=== PATIENT | male | born 1985 | race Caucasian/White ===

== ENCOUNTER 2018-04-24 14:16 | Inpatient (IN) | payer SELFPAY ==
[~2018-04-24 14:16] MED LIST: PROPOFOL 1,000 MG/100 ML INFUS..BTL IV ONE
[2018-04-24] MEDS ORDERED: ACETAMINOPHEN 325 MG TABLET PO PRN (14:22)
[2018-04-24] MEDS ORDERED: NORMAL SALINE 1000 ML 1,000 ML IV PRN ×2 (14:22→14:40)
[2018-04-24] MEDS ORDERED: PHARMACY COMMUNICATION ORDER MC NR (14:30)
--- NOTE | 2018-04-24 15:22 | RADIOLOGY REPORT (SQ) ---
EXAM DESCRIPTION: CHEST SINGLE VIEW COMPLETED DATE/TIME: 04/24/2018 3:04 pm REASON FOR STUDY: ETT placement. Evaluate for aspiration COMPARISON: None. EXAM PARAMETERS: NUMBER OF VIEWS: One view. TECHNIQUE: Single frontal radiographic view of the chest acquired. RADIATION DOSE: NA LIMITATIONS: None. FINDINGS: LUNGS AND PLEURA: No acute opacities, masses or pneumothorax. No pleural effusion. MEDIASTINUM AND HILAR STRUCTURES: No masses. Contour normal. HEART AND VASCULAR STRUCTURES: Heart normal in size. Normal vasculature. BONES: No acute findings. HARDWARE: Endotracheal tube tip overlies the mid trachea approximately 8 cm above the level of the ca lita. Nasogastric catheter is present with side port below the GE junction. OTHER: No other significant finding. IMPRESSION: Endotracheal tube tip overlies the mid trachea approximately 8 cm above the level of the johnnie. Nasogastric catheter is present with side port below the GE junction. TECHNICAL DOCUMENTATION: JOB ID: [id number] 2010 [employer]- All Rights Reserved Reading location - IP/workstation name: [email or web address]
[2018-04-24 15:41] LABS: ABSOLUTE MONOCYTES (AUTO) 0.2 10^3/uL (0.1-1.4); ABSOLUTE NEUT (AUTO) 9.4 10^3/uL (1.7-8.2); BASOPHILS % (AUTO) 0.2 % (0-2); HEMATOCRIT 38.8 % (37.9-51.0); LYMPHOCYTES % (AUTO) 9.4 % (13-45); MEAN CORPUSCULAR HEMOGLOBIN 28.6 pg (27.0-33.4); MEAN CORPUSCULAR HGB CONC 33.5 g/dL (32.0-36.0); MEAN CORPUSCULAR VOLUME 85 fl (80-97); MONOCYTES % (AUTO) 1.5 % (3-13); PLATELET COUNT 191 10^3/uL (150-450); RED BLOOD COUNT 4.55 10^6/uL (4.35-5.55); RED CELL DISTRIBUTION WIDTH 13.9 % (11.5-14.0); SEGMENTED NEUTROPHILS % (AUTO) 88.9 % (42-78); TOTAL CELLS COUNTED % (AUTO) 100 %; WHITE BLOOD COUNT 10.6 10^3/uL (4.0-10.5)
[2018-04-24 15:53] LABS: INTERNATIONAL RATION (INR) 1.01; PROTHROMBIN TIME 13.8 SEC (11.4-15.4)
--- NOTE | 2018-04-24 15:54 | RADIOLOGY REPORT (SQ) ---
EXAM DESCRIPTION: KUB/ABDOMEN (SINGLE VIEW) COMPLETED DATE/TIME: 04/24/2018 3:04 pm REASON FOR STUDY: Check Placement of NG Tube COMPARISON: None. NUMBER OF VIEWS: One view. TECHNIQUE: Supine radiographic image of the abdomen acquired. LIMITATIONS: None. FINDINGS: BOWEL GAS PATTERN: Nonspecific, nonobstructed bowel gas pattern. CALCIFICATIONS: No suspicious calcifications. SOFT TISSUES: No gross mass or suggestion of organomegaly. HARDWARE: Apparent Overton bladder catheter. Notably, no enteric tube is visualized on this image. BONES: No acute fracture. No worrisome bone lesions. OTHER: No other significant finding. IMPRESSION: No enteric tube is demonstrated on the image provided. Apparent Overton bladder catheter demonstrates normal position. TECHNICAL DOCUMENTATION: JOB ID: [id number] [employer]- All Rights Reserved Reading location - IP/workstation name: [email or web address]
[2018-04-24 16:03] LABS: ALANINE AMINOTRANSFERASE 49 U/L (21-72); ALBUMIN 3.8 g/dL (3.5-5.0); ALKALINE PHOSPHATASE 74 U/L (38-126); ANION GAP 11 (5-19); ASPARTATE AMINO TRANSFERASE 40 U/L (17-59); BILIRUBIN,DIRECT 0.3 mg/dL (0.0-0.4); BILIRUBIN,TOTAL 0.5 mg/dL (0.2-1.3); BLOOD UREA NITROGEN 16 mg/dL (7-20); CALCIUM 9.2 mg/dL (8.4-10.2); CARBON DIOXIDE 30 mmol/L (22-30); CHLORIDE 101 mmol/L (98-107); GLUCOSE 104 mg/dL (75-110); POTASSIUM 4.6 mmol/L (3.6-5.0); SODIUM 141.7 mmol/L (137-145); TOTAL PROTEIN 7.1 g/dL (6.3-8.2)
[2018-04-24 16:04] LABS: ALCOHOL < 10 mg/dL (NONE DETECTED)
[2018-04-24 16:13] LABS: CREATINE KINASE MB 2.01 ng/mL (<4.55)
--- NOTE | 2018-04-24 16:24 | RADIOLOGY REPORT (SQ) ---
EXAM DESCRIPTION: CT HEAD WITHOUT COMPLETED DATE/TIME: 04/24/2018 4:11 pm REASON FOR STUDY: found down - prolonged downtime COMPARISON: None. TECHNIQUE: Axial images acquired through the brain without intravenous contrast. Images reviewed wi th bone, brain and subdural windows. Additional sagittal and coronal reconstructions were generated. Images stored on PACS. All CT scanners at this facility use dose modulation, iterative reconstruction, and/or weight based d osing when appropriate to reduce radiation dose to as low as reasonably achievable (ALARA). [facility]: Dose Right [facility]: CareDose [facility]: Dose Right [facility]: Teradose 4D [facility]: Smart QWiPS RADIATION DOSE: CT Rad equipment meets quality standard of care and radiation dose reduction techniq ues were employed. CTDIvol: 53.2 mGy. DLP: 1044 mGy-cm. mGy. LIMITATIONS: None. FINDINGS: VENTRICLES: Normal size and contour. CEREBRUM: No masses. No hemorrhage. No midline shift. No evidence for acute infarction. Normal gra y/white matter differentiation. No areas of low density in the white matter. CEREBELLUM: No masses. No hemorrhage. No alteration of density. No evidence for acute infarction. EXTRAAXIAL SPACES: No fluid collections. No masses. ORBITS AND GLOBE: No intra- or extraconal masses. Normal contour of globe without masses. CALVARIUM: No fracture. PARANASAL SINUSES: No fluid or mucosal thickening. SOFT TISSUES: No mass or hematoma. OTHER: Partially imaged enteric and endotracheal tubes. IMPRESSION: NORMAL BRAIN CT WITHOUT CONTRAST. EVIDENCE OF ACUTE STROKE: NO. COMMENT: Quality ID # [id number]: Final reports with documentation of one or more dose reduction techniques (e.g., Automated exposure control, adjustment of the mA and/or kV according to patient size, use of iterative reconstruction technique) TECHNICAL DOCUMENTATION: JOB ID: [id number] [employer]- All Rights Reserved Reading location - IP/workstation name: [email or web address]
[2018-04-24] MEDS ORDERED: ACETAMINOPHEN 325 MG TABLET NG PRN (16:30)
--- NOTE | 2018-04-24 16:36 | RADIOLOGY REPORT (SQ) ---
EXAM DESCRIPTION: CT SOFT TISSUE NECK WITH COMPLETED DATE/TIME: 04/24/2018 4:11 pm REASON FOR STUDY: posterior pharynx trauma COMPARISON: None. TECHNIQUE: Post IV contrasted scanning from skull base through lung apices with review of bone, soft tissue and lung windows. Reconstructed coronal and sagittal MPR images reviewed. All images stored on PACS. All CT scanners at this facility use dose modulation, iterative reconstruction, and/or weight based d osing when appropriate to reduce radiation dose to as low as reasonably achievable (ALARA). [facility]: Dose Right [facility]: CareDose [facility]: Dose Right [facility]: Teradose 4D [facility]: CodeNgo CONTRAST TYPE AND DOSE: contrast/concentration: Isovue 370.00 mg/ml; Total Contrast Delivered: 75.0 ml; Total Saline Delivered: 55.0 ml RENAL FUNCTION: None required. The patient is less than 50 years old. RADIATION DOSE: CT Rad equipment meets quality standard of care and radiation dose reduction techniq ues were employed. CTDIvol: 15.6 mGy. DLP: 491 mGy-cm. . LIMITATIONS: None. FINDINGS: SKULL BASE: Intact. MAJOR SALIVARY GLANDS: No solid or cystic masses. No inflammatory changes. LYMPHADENOPATHY: No adenopathy. MUCOSAL MASSES OR ASYMMETRY: No mucosal masses or asymmetry. A small amount of foamy secretions are seen within the oropharynx in this intubated patient. LARYNX/CORDS: Poorly characterized due to endotracheal tube. VASCULAR STRUCTURES: The major vessels are patent. LUNG APICES: Clear. BONES: Intact. THYROID: Normal size. No masses. PARANASAL SINUSES: Clear. OTHER: An endotracheal tube terminates at the level of the clavicular head. An enteric tube is seen along the esophagus, extending caudally out of the field of view. IMPRESSION: 1. NO SIGNIFICANT FINDING IN THE SOFT TISSUES OF THE NECK. 2. ENDOTRACHEAL TUBE DEMONSTRATING APPROPRIATE POSITIONING. PARTIALLY IMAGED ENTERIC TUBE. TECHNICAL DOCUMENTATION: JOB ID: [id number] Quality ID # [id number]: Final reports with documentation of one or more dose reduction techniques (e.g., Au tomated exposure control, adjustment of the mA and/or kV according to patient size, use of iterative reconstruction technique) 2010 [employer]- All Rights Reserved Reading location - IP/workstation name: [email or web address]
--- NOTE | 2018-04-24 16:57 | PDOC H&P ---
History of Present Illness Admission Date/PCP: 04/24/18 14:16 Patient complains of: OBTUNDED. FOUND DOWN. History of Present Illness: MANDA NOLASCO III is a 32 year old male who [place] [facility] [place] The patient was found down by family, unknown downtime. Uncle reports he was unable to wake him up for work this morning. According to EMS, patient was agitated and combative with copious oral secretions. Versed was given in the field due to combativeness, AMS, and possible compromised airway. Following Versed administration, it was identified that the patient had a foreign body in his airway and there was some degree of difficulty with ventilation. The patient was transferred to [facility] for for immediate stabilization. He arrived to [facility] ED obtunded with copious bloody secretions as well as obvious foreign body in posterior oropharynx. Foreign body was identified as dentures. ENT was able to remove dentures after several attempts using fiberoptic endoscope and Cmac. The patient was intubated for airway protection due to poor neurological exam and upper airway trauma. The patient's sister was contacted and she confirmed that the patient had a history of IV heroin use. He was recently incarcerated on drug related charges and released approximately 3 months ago. He was identified as a civilian and transferred to [facility] ICU. No PMH Upon arrival to [facility] ICU, the patient is sedated on propofol. Able to move upper and lower extremities with purpose. Does not respond to commands, does not answer yes/no questions. PERRLA. His VS are T 37.0 BP 130/62 HR 63 RR 12 SPO2 100% on ventilator. NSR on cardiac telemetry. Lungs are clear to auscultation. S1S2, no murmur/rubs/gallops. Unable to visualize inside of oropharynx due to ETT. Lengthy discussion with sister, Katlyn (Quinten RN at [facility]). She reports that the patient has an extensive history of narcotic abuse that started when he was 16 years old. 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 The sister states the patient has been living with their mother but she is concerned that the patient has been using heroin since he has been out of [facility]. Of note, the patient did not receive Narcan during his time at [facility] emergency department. Admit to hospitalist service with pulmonary consult for vent management. Past Medical History Medical History: None Past Surgical History Past Surgical History: Reports: Orthopedic Surgery - titanium replaced eye socket, Tonsillectomy - adenoids Social History Information Source: Relative - SISTER Lizett CONKLIN Lives with: Family, Parents Smoking Status: Smoker,Current Status Unk Hx Recreational Drug Use: Yes Drugs: Heroin Hx Prescription Drug Abuse: Yes - PERCOCET - Advance Directive Resuscitation Status: Full Code Surrogate healthcare decision maker:: MOTHER Family History Family History: Reviewed & Not Pertinent, Other Parental Family History Reviewed: No - UNABLE TO ASSESS Children Family History Reviewed: NA Sibling(s) Family History Reviewed.: NA Medication/Allergy Home Medications: Ibuprofen 800 mg PO Q4H PRN 11/15/12 Oxycodone HCl/Acetaminophen [Percocet 5-325 mg Tablet] 1 - 2 tab PO ASDIR PRN # 25 tablet 04/19/14 Allergies/Adverse Reactions: hydrocodone [Hydrocodone] Adverse Reaction (Mild, Verified 04/19/14 19:17) bee stings Allergy (Severe, Uncoded 04/19/14 19:17) Anaphylaxis Review of Systems ROS unobtainable: Due to endotracheal tube Physical Exam General appearance: PRESENT: thin Head exam: PRESENT: atraumatic Eye exam: PRESENT: conjunctiva pink, PERRLA Mouth exam: PRESENT: moist Neck exam: PRESENT: full ROM Respiratory exam: PRESENT: clear to auscultation uma, symmetrical, unlabored Cardiovascular exam: PRESENT: RRR, +S1, +S2 Pulses: PRESENT: normal radial pulses, normal dorsalis pedis pul GI/Abdominal exam: PRESENT: normal bowel sounds, soft. ABSENT: distended Rectal exam: PRESENT: deferred Extremities exam: PRESENT: full ROM. ABSENT: +1 edema Musculoskeletal exam: PRESENT: full ROM, normal inspection Neurological exam: PRESENT: other - SEDATED ON PROPOFOL. PURPOSEFUL MOVEMENT OF UPPER AND LOWER EXTREMITIES. ABSENT: oriented to person, oriented to place, oriented to time, oriented to situation Skin exam: PRESENT: dry, intact, normal color, warm Results Impressions: Chest X-Ray 04/24/18 14:26 IMPRESSION: Endotracheal tube tip overlies the mid trachea approximately 8 cm above the level of the johnnie. Nasogastric catheter is present with side port below the GE junction. Status: Imported from PACS Assessment & Plan - Diagnosis (1) Acute respiratory failure with hypoxia Is this a current diagnosis for this admission?: Yes Plan: Secondary to illicit drug overdose and upper airway swelling UTOX (+) positive for opiates, family reports history of heroin use Obtunded upon arrival to [facility], intubated for airway protection Of note, patient's dentures were dislodged (per EMS) and multiple attempts were made (family, EMS, ED MD) to remove them from the oropharynx Significant amount of upper airway swelling secondary to manipulation in an attempt to remove dentures [facility] ENT was successful at removal of dentures Scheduled IV decadron for upper airway swelling CT Soft Tissue neck to evaluate soft tissue trauma and possible vessel damage Continue mechanical ventilation tonight Plan to test cuff pressure in AM and evaluate for airway swelling and possible extubation (2) Overdose Qualifiers: Encounter type: initial encounter Is this a current diagnosis for this admission?: Yes Plan: Patient found down by family, unknown downtime. Arrived to [facility] obtunded UTOX (+) positive for opiates Sister reports history of IV heroin use No Narcan administered at [facility] Patient intubated for airway protection No plan to administer Narcan now that patient is intubated (3) Illicit drug use Is this a current diagnosis for this admission?: Yes Plan: Sister reports the patient has a history of IV heroin use She states that the patient has been abusing narcotics since age 16 y.o. Recent incarceration for 1 yr on drug related charges. [facility] approx[facility] 3 months ago The patient did not receive Narcan while at [facility], no plan to administer now Will offer supportive care if patient begins to withdraw (4) Contact with and (suspected) exposure to tuberculosis Is this a current diagnosis for this admission?: Yes Plan: Recent incarceration for 1 year Released 3 months ago R/o TB - PPD placed today (04/24) - Time Time Spent: 50 to 70 Minutes Critical Time spent with patient: 15-24 minutes Medications reviewed and adjusted accordingly: Yes Anticipated discharge: Home - Inpatient Certification Based on my medical assessment, after consideration of the patient's comorbidities, presenting symptoms, or acuity I expect that the services needed warrant INPATIENT care.: Yes I certify that my determination is in accordance with my understanding of Medicare's requirements for reasonable and necessary INPATIENT services [42 CFR 412.3e].: Yes Medical Necessity: Risk of Complication if Not Cared For in Hospital - Plan Summary Plan Summary: ADMIT TO ICU. MECHANICAL VENTILATION OVERNIGHT. IV STEROIDS. CONTINUOUS SEDATION. PLAN FOR CUFF PRESSURE/CUFF LEAK TEST IN AM.
[2018-04-24 16:59] LABS: ARTERIAL BLOOD BASE EXCESS 2.1 mmol/L; ARTERIAL BLOOD H2CO3 1.93 mmol/L (1.05-1.35); ARTERIAL BLOOD HCO3 30.3 mmol/L (20-26); ARTERIAL BLOOD O2 SATURATION 77.6 % (94-98); ARTERIAL BLOOD PCO2 64.1 mmHg (35-45); ARTERIAL BLOOD PH 7.29 (7.35-7.45); ARTERIAL BLOOD PO2 47.5 mmHg (80-100); ARTERIAL BLOOD TOTAL CO2 32.3 mmol/L (23-27)
[2018-04-24 17:00] LABS: ARTERIAL BLOOD FIO2 28%
[2018-04-24] MEDS ORDERED: TUBERCULIN,PURIF.PROT.DERIV. 5 TU/0.1 ML TEST 1 ML VIAL ID ONE (17:00)
[2018-04-24 17:03] LABS: APPEARANCE,URINE CLEAR; BILIRUBIN,URINE NEGATIVE (NEGATIVE); COLOR,URINE YELLOW; GLUCOSE, URINE NEGATIVE (NEGATIVE); KETONES,URINE 20 mg/dL (NEGATIVE); LEUKOCYTE ESTERASE,URINE NEGATIVE (NEGATIVE); NITRITE,URINE NEGATIVE (NEGATIVE); PROTEIN,URINE NEGATIVE (NEGATIVE); UROBILINOGEN,URINE NEGATIVE mg/dL (<2.0)
[2018-04-24 17:04] LABS: URINE SPECIFIC GRAVITY > 1.060
[2018-04-24 17:18] LABS: URINE AMPHETAMINES SCREEN NEGATIVE; URINE BARBITURATES SCREEN NEGATIVE; URINE COCAINE SCREEN NEGATIVE; URINE MARIJUANA (THC) SCREEN NEGATIVE; URINE METHADONE SCREEN NEGATIVE; URINE PHENCYCLIDINE SCREEN NEGATIVE
[2018-04-24 17:26] LABS: URINE BENZODIAZEPINES SCREEN UNCONFIRMED POSITIVE
[2018-04-24 20:41] LABS: ARTERIAL BLOOD BASE EXCESS 0.5 mmol/L; ARTERIAL BLOOD H2CO3 1.54 mmol/L (1.05-1.35); ARTERIAL BLOOD O2 SATURATION 96.9 % (94-98); ARTERIAL BLOOD PCO2 51.1 mmHg (35-45); ARTERIAL BLOOD PH 7.34 (7.35-7.45); ARTERIAL BLOOD PO2 96.9 mmHg (80-100); ARTERIAL BLOOD TOTAL CO2 28.6 mmol/L (23-27)
[2018-04-24 20:42] LABS: ARTERIAL BLOOD FIO2 28%
--- NOTE | 2018-04-24 21:47 | EKG REPORT ---
SEVERITY:- NORMAL ECG - SINUS RHYTHM : Confirmed by: Ester Abad MD 24-Apr-2018 21:46:18
[2018-04-24] MEDS ORDERED: DEXAMETHASONE SOD PHOS INJ 10 MG/1 ML VIAL IV SCH (22:00)
[2018-04-24] MEDS: PANTOPRAZOLE SODIUM 40 MG VIAL IV SCH (22:07)
[2018-04-24] MEDS: DEXAMETHASONE SOD PHOS INJ 10 MG/1 ML VIAL IV SCH (22:07)
[2018-04-24] MEDS: PROPOFOL 1,000 MG/100 ML INFUS..BTL IV PRN ×2 (22:07→23:14)
[2018-04-24] MEDS: FENTANYL CITRATE INJ/PF 100 MCG/2 ML AMPUL IV PRN (23:13)
[2018-04-24] MEDS: LORAZEPAM INJ 2 MG/1 ML VIAL IV PRN (23:13)
[2018-04-25 03:14] LABS: HEMATOCRIT 38.2 % (37.9-51.0); HEMOGLOBIN 13.1 g/dL (13.5-17.0); MEAN CORPUSCULAR HEMOGLOBIN 29.2 pg (27.0-33.4); MEAN CORPUSCULAR HGB CONC 34.3 g/dL (32.0-36.0); MEAN CORPUSCULAR VOLUME 85 fl (80-97); PLATELET COUNT 200 10^3/uL (150-450); RED BLOOD COUNT 4.49 10^6/uL (4.35-5.55); RED CELL DISTRIBUTION WIDTH 13.9 % (11.5-14.0); WHITE BLOOD COUNT 10.5 10^3/uL (4.0-10.5)
[2018-04-25 03:24] LABS: ANION GAP 9 (5-19); BLOOD UREA NITROGEN 17 mg/dL (7-20); CALCIUM 9.1 mg/dL (8.4-10.2); CARBON DIOXIDE 29 mmol/L (22-30); CHLORIDE 104 mmol/L (98-107); GLUCOSE 125 mg/dL (75-110); PHOSPHORUS 4.6 mg/dL (2.5-4.5); POTASSIUM 4.8 mmol/L (3.6-5.0); SODIUM 142.1 mmol/L (137-145)
[2018-04-25] MEDS: LORAZEPAM INJ 2 MG/1 ML VIAL IV PRN ×2 (03:41→22:15)
[2018-04-25] MEDS: FENTANYL CITRATE INJ/PF 100 MCG/2 ML AMPUL IV PRN (03:41)
[2018-04-25] MEDS: PROPOFOL 1,000 MG/100 ML INFUS..BTL IV PRN ×2 (03:41→05:53)
[2018-04-25] MEDS: DEXAMETHASONE SOD PHOS INJ 10 MG/1 ML VIAL IV SCH ×3 (05:52→22:13)
[2018-04-25 06:21] LABS: ARTERIAL BLOOD BASE EXCESS 1.5 mmol/L; ARTERIAL BLOOD H2CO3 1.36 mmol/L (1.05-1.35); ARTERIAL BLOOD HCO3 26.8 mmol/L (20-26); ARTERIAL BLOOD O2 SATURATION 95.4 % (94-98); ARTERIAL BLOOD PCO2 45.1 mmHg (35-45); ARTERIAL BLOOD PH 7.39 (7.35-7.45); ARTERIAL BLOOD PO2 77.8 mmHg (80-100); ARTERIAL BLOOD TOTAL CO2 28.2 mmol/L (23-27)
[2018-04-25 06:22] LABS: ARTERIAL BLOOD FIO2 28%
[2018-04-25 09:26] LABS: APPEARANCE,URINE SLIGHTLY-CLOUDY; BILIRUBIN,URINE NEGATIVE (NEGATIVE); COLOR,URINE YELLOW; GLUCOSE, URINE NEGATIVE (NEGATIVE); KETONES,URINE NEGATIVE (NEGATIVE); LEUKOCYTE ESTERASE,URINE NEGATIVE (NEGATIVE); NITRITE,URINE NEGATIVE (NEGATIVE); PROTEIN,URINE NEGATIVE (NEGATIVE); URINE SPECIFIC GRAVITY 1.025; UROBILINOGEN,URINE NEGATIVE mg/dL (<2.0)
[2018-04-25] MEDS: PANTOPRAZOLE SODIUM 40 MG VIAL IV SCH ×2 (09:55→22:12)
[2018-04-25] MEDS: ENOXAPARIN SODIUM INJ 30 MG/0.3 ML DISP.SYRIN SUBCUT SCH (11:31)
--- NOTE | 2018-04-25 18:02 | PDOC PROGRESS REPORT ---
Subjective Progress Note for:: 04/25/18 Subjective:: MANDA NOLASCO III is a 32 year old male who transferred from [facility]). He was found down at home by his uncle. Family reports a history of IV heroin use. Foreign body (dentures) was discovered in his oropharynx by EMS. Multiple attempts at removal. Intubated for airway protection. [facility] ENT was able to remove foreign body. Patient is a civilian - direct admit to [facility] ICU. The patient is seen this morning on rounds. He is resting comfortably in bed on mechanical ventilation. Settings SIMV VC R16 [id number] Fio2 28% PEEP 5. Respiratory therapy at the bedside to check cuff pressure (to evaluate for upper airway edema), which was 22cm H20, within the normal range of 20-30cm H20. Ventilatory settings changed to P/S in preparation for extubation. Successful extubation today at 0838. Extubated to face tent. Patient exhibited a strong cough (on command) immediately following extubation. Will continue to monitor for signs of upper airway edema. Reason For Visit: OVERDOSE. AIRWAY OBSTRUCTION Physical Exam Vital Signs: Temp Pulse Resp BP Pulse Ox 98.2 F 66 17 124/76 100 04/25/18 00:00 04/24/18 21:21 04/25/18 06:09 04/25/18 06:09 04/25/18 06:09 Intake & Output 04/24/18 04/25/18 04/26/18 06:59 06:59 06:59 Intake Total 0 Output Total 1120 Balance -1120 Weight 88.4 kg General appearance: PRESENT: well-developed, well-nourished Head exam: PRESENT: atraumatic Eye exam: PRESENT: conjunctiva pink Teeth exam: PRESENT: poor dentation Neck exam: PRESENT: full ROM Respiratory exam: PRESENT: clear to auscultation uma, symmetrical, unlabored Cardiovascular exam: PRESENT: +S1, +S2 Pulses: PRESENT: normal radial pulses, normal dorsalis pedis pul GI/Abdominal exam: PRESENT: normal bowel sounds, soft. ABSENT: tenderness Rectal exam: PRESENT: deferred Extremities exam: PRESENT: full ROM Musculoskeletal exam: PRESENT: ambulatory, full ROM Neurological exam: PRESENT: alert, awake, oriented to person, oriented to place , oriented to time, oriented to situation Psychiatric exam: PRESENT: appropriate affect Skin exam: PRESENT: intact, normal color Results Laboratory Results: 04/25/18 02:50 04/25/18 02:50 04/24/18 04/24/18 04/24/18 15:19 15:19 15:19 WBC 10.6 H RBC 4.55 Hgb 13.0 L Hct 38.8 MCV 85 MCH 28.6 MCHC 33.5 RDW 13.9 Plt Count 191 Seg Neutrophils % 88.9 H Lymphocytes % 9.4 L Monocytes % 1.5 L Eosinophils % 0.0 Basophils % 0.2 Absolute Neutrophils 9.4 H Absolute Lymphocytes 1.0 Absolute Monocytes 0.2 Absolute Eosinophils 0.0 Absolute Basophils 0.0 Carbonic Acid HCO3/H2CO3 Ratio ABG pH ABG pCO2 ABG pO2 ABG HCO3 ABG O2 Saturation ABG Base Excess FiO2 Sodium 141.7 Potassium 4.6 Chloride 101 Carbon Dioxide 30 Anion Gap 11 BUN 16 Creatinine 0.77 Est GFR ( Amer) > 60 Est GFR (Non-Af Amer) > 60 Glucose 104 Calcium 9.2 Phosphorus Magnesium Total Bilirubin 0.5 AST 40 ALT 49 Alkaline Phosphatase 74 Total Protein 7.1 Albumin 3.8 TSH 0.58 Urine Color Urine Appearance Urine pH Ur Specific [place] Urine Protein Urine Glucose (UA) Urine Ketones Urine Blood Urine Nitrite Ur Leukocyte Esterase Urine WBC (Auto) Urine RBC (Auto) 04/24/18 04/24/18 04/24/18 16:35 16:45 19:30 WBC RBC Hgb Hct MCV MCH MCHC RDW Plt Count Seg Neutrophils % Lymphocytes % Monocytes % Eosinophils % Basophils % Absolute Neutrophils Absolute Lymphocytes Absolute Monocytes Absolute Eosinophils Absolute Basophils Carbonic Acid 1.93 H Cancelled HCO3/H2CO3 Ratio 15:1 Cancelled ABG pH 7.29 L Cancelled ABG pCO2 64.1 H Cancelled ABG pO2 47.5 L Cancelled ABG HCO3 30.3 H Cancelled ABG O2 Saturation 77.6 L Cancelled ABG Base Excess 2.1 Cancelled FiO2 28% Cancelled Sodium Potassium Chloride Carbon Dioxide Anion Gap BUN Creatinine Est GFR ( Amer) Est GFR (Non-Af Amer) Glucose Calcium Phosphorus Magnesium Total Bilirubin AST ALT Alkaline Phosphatase Total Protein Albumin TSH Urine Color YELLOW Urine Appearance CLEAR Urine pH 7.0 Ur Specific [place] > 1.060 Urine Protein NEGATIVE Urine Glucose (UA) NEGATIVE Urine Ketones 20 H Urine Blood NEGATIVE Urine Nitrite NEGATIVE Ur Leukocyte Esterase NEGATIVE Urine WBC (Auto) 1 Urine RBC (Auto) 2 04/24/18 04/25/18 04/25/18 20:30 02:50 02:50 WBC 10.5 RBC 4.49 Hgb 13.1 L Hct 38.2 MCV 85 MCH 29.2 MCHC 34.3 RDW 13.9 Plt Count 200 Seg Neutrophils % Lymphocytes % Monocytes % Eosinophils % Basophils % Absolute Neutrophils Absolute Lymphocytes Absolute Monocytes Absolute Eosinophils Absolute Basophils Carbonic Acid 1.54 H HCO3/H2CO3 Ratio 17:1 ABG pH 7.34 L ABG pCO2 51.1 H ABG pO2 96.9 ABG HCO3 27.0 H ABG O2 Saturation 96.9 ABG Base Excess 0.5 FiO2 28% Sodium 142.1 Potassium 4.8 Chloride 104 Carbon Dioxide 29 Anion Gap 9 BUN 17 Creatinine 0.66 Est GFR ( Amer) > 60 Est GFR (Non-Af Amer) > 60 Glucose 125 H Calcium 9.1 Phosphorus 4.6 H Magnesium 2.2 Total Bilirubin AST ALT Alkaline Phosphatase Total Protein Albumin TSH Urine Color Urine Appearance Urine pH Ur Specific [place] Urine Protein Urine Glucose (UA) Urine Ketones Urine Blood Urine Nitrite Ur Leukocyte Esterase Urine WBC (Auto) Urine RBC (Auto) 04/25/18 06:00 WBC RBC Hgb Hct MCV MCH MCHC RDW Plt Count Seg Neutrophils % Lymphocytes % Monocytes % Eosinophils % Basophils % Absolute Neutrophils Absolute Lymphocytes Absolute Monocytes Absolute Eosinophils Absolute Basophils Carbonic Acid 1.36 H HCO3/H2CO3 Ratio 19:1 ABG pH 7.39 ABG pCO2 45.1 H ABG pO2 77.8 L ABG HCO3 26.8 H ABG O2 Saturation 95.4 ABG Base Excess 1.5 FiO2 28% Sodium Potassium Chloride Carbon Dioxide Anion Gap BUN Creatinine Est GFR ( Amer) Est GFR (Non-Af Amer) Glucose Calcium Phosphorus Magnesium Total Bilirubin AST ALT Alkaline Phosphatase Total Protein Albumin TSH Urine Color Urine Appearance Urine pH Ur Specific [place] Urine Protein Urine Glucose (UA) Urine Ketones Urine Blood Urine Nitrite Ur Leukocyte Esterase Urine WBC (Auto) Urine RBC (Auto) 04/24/18 04/24/18 04/24/18 15:19 15:19 20:45 CK-MB (CK-2) 2.01 Troponin I < 0.012 < 0.012 NT-Pro-B Natriuret Pep 190 H 04/25/18 02:50 CK-MB (CK-2) Troponin I < 0.012 NT-Pro-B Natriuret Pep Impressions: Head CT 04/24/18 00:00 IMPRESSION: NORMAL BRAIN CT WITHOUT CONTRAST. EVIDENCE OF ACUTE STROKE: NO. Soft Tissue Neck CT 04/24/18 00:00 IMPRESSION: 1. NO SIGNIFICANT FINDING IN THE SOFT TISSUES OF THE NECK. 2. ENDOTRACHEAL TUBE DEMONSTRATING APPROPRIATE POSITIONING. PARTIALLY IMAGED ENTERIC TUBE. KUB X-Ray 04/24/18 14:23 IMPRESSION: No enteric tube is demonstrated on the image provided. Apparent Overton bladder catheter demonstrates normal position. Chest X-Ray 04/24/18 14:26 IMPRESSION: Endotracheal tube tip overlies the mid trachea approximately 8 cm above the level of the johnnie. Nasogastric catheter is present with side port below the GE junction. Status: Imported from PACS Assessment & Plan - Diagnosis (1) Acute respiratory failure with hypoxia Is this a current diagnosis for this admission?: Yes Plan: Resolved. Secondary to illicit drug overdose and upper airway swelling UTOX (+) positive for opiates, family reports history of heroin use Obtunded upon arrival to [facility] 04/24/2018, intubated for airway protection Patient's dentures were dislodged (per EMS) and multiple attempts were made ( family, EMS, ED MD) to remove them from the oropharynx. [facility] ENT was successful at removal. CT Soft Tissue neck negative Scheduled IV decadron for upper airway swelling Successful extubation 04/25/2018, monitor for upper airway swelling overnight Barring any complications, patient will likely be discharged home in AM (2) Overdose Qualifiers: Encounter type: initial encounter Is this a current diagnosis for this admission?: Yes Plan: UTOX (+) positive for opiates Sister reports history of IV heroin use Initially intubated for airway protection given poor neuro status Now awake and extubated Will offer supportive care if patient begins to experience withdrawal symptoms (3) Illicit drug use Is this a current diagnosis for this admission?: Yes Plan: Sister reports the patient has a history of IV heroin use She states that the patient has been abusing narcotics since age 16 y.o. Recent incarceration for 1 yr on drug related charges. Released from [facility] approx. 3 months ago Will offer supportive care if patient begins to withdraw (4) Contact with and (suspected) exposure to tuberculosis Is this a current diagnosis for this admission?: Yes Plan: Recent incarceration for 1 year Released 3 months ago R/o TB - PPD placed today (04/24) - Time Time Spent with patient: 15-24 minutes Medications reviewed and adjusted accordingly: Yes Anticipated discharge: Home Within: within 24 hours - Inpatient Certification Based on my medical assessment, after consideration of the patient's comorbidities, presenting symptoms, or acuity I expect that the services needed warrant INPATIENT care.: Yes I certify that my determination is in accordance with my understanding of Medicare's requirements for reasonable and necessary INPATIENT services [42 CFR 412.3e].: Yes Medical Necessity: Risk of Complication if Not Cared For in Hospital - Plan Summary Plan Summary: Monitor for upper airway swelling following denture dislodging and airway occlusion. Continue IV steroids. Monitor for withdrawal symptoms. Likely discharge home in AM.
[2018-04-26 04:35] LABS: HEMATOCRIT 36.4 % (37.9-51.0); HEMOGLOBIN 12.2 g/dL (13.5-17.0); MEAN CORPUSCULAR HEMOGLOBIN 28.2 pg (27.0-33.4); MEAN CORPUSCULAR HGB CONC 33.4 g/dL (32.0-36.0); MEAN CORPUSCULAR VOLUME 85 fl (80-97); PLATELET COUNT 184 10^3/uL (150-450); RED BLOOD COUNT 4.31 10^6/uL (4.35-5.55); RED CELL DISTRIBUTION WIDTH 13.5 % (11.5-14.0); WHITE BLOOD COUNT 12.8 10^3/uL (4.0-10.5)
[2018-04-26 05:07] LABS: ANION GAP 8 (5-19); BLOOD UREA NITROGEN 13 mg/dL (7-20); CALCIUM 9.3 mg/dL (8.4-10.2); CARBON DIOXIDE 30 mmol/L (22-30); CHLORIDE 108 mmol/L (98-107); GLUCOSE 114 mg/dL (75-110); PHOSPHORUS 2.8 mg/dL (2.5-4.5); POTASSIUM 4.2 mmol/L (3.6-5.0); SODIUM 145.6 mmol/L (137-145)
[2018-04-26] MEDS: DEXAMETHASONE SOD PHOS INJ 10 MG/1 ML VIAL IV SCH (05:59)
[2018-04-26] MEDS: LORAZEPAM INJ 2 MG/1 ML VIAL IV PRN (06:00)
[2018-04-26] MEDS: ENOXAPARIN SODIUM INJ 30 MG/0.3 ML DISP.SYRIN SUBCUT SCH (12:33)
[2018-04-26] MEDS: PANTOPRAZOLE SODIUM 40 MG VIAL IV SCH (12:33)
[2018-04-26 12:53] VITALS: BP 115/60
[2018-04-27 11:39] LABS: HEPATITIS A AB IGM Negative (Negative); HEPATITIS B CORE AB IGM Negative (Negative); HEPATITS B SURFACE ANTIGEN Negative (Negative)
[2018-04-27 13:12] LABS: HEPATITIS C VIRUS ANTIBODY >11.0 s/co ratio (0.0-0.9)
--- NOTE | 2018-05-06 08:34 | PDOC DISCHARGE SUMMARY ---
General - Admit/Disc Date/PCP Admission Date/Primary Care Provider: 04/24/18 14:16 Discharge Date: 04/26/18 - Discharge Diagnosis (1) Acute respiratory failure with hypoxia Is this a current diagnosis for this admission?: Yes (2) Overdose Is this a current diagnosis for this admission?: Yes (3) Illicit drug use Is this a current diagnosis for this admission?: Yes (4) Contact with and (suspected) exposure to tuberculosis Is this a current diagnosis for this admission?: Yes - Additional Information Resuscitation Status: Full Code Discharge Diet: As Tolerated Discharge Activity: Activity As Tolerated Home Medications: Cephalexin Monohydrate [Keflex 500 mg Capsule] 500 mg PO QID #28 capsule Sulfamethoxazole/Trimethoprim [Bactrim Ds Tablet] 1 each PO BID #14 tablet 04/29 History of Present Illness History of Present Illness: MANDA NOLASCO III is a 32 year old [place] [facility] [place] down by family, unknown downtime. Uncle reports he was unable to wake him up for work this morning. According to EMS, patient was agitated and combative with copious oral secretions. Versed was given in the field due to combativeness, AMS, and possible compromised airway. Following Versed administration, it was identified that the patient had a foreign body in his airway and there was some degree of difficulty with ventilation. The patient was transferred to [facility] for for immediate stabilization. He arrived to [facility] ED obtunded with copious bloody secretions as well as obvious foreign body in posterior oropharynx. Foreign body was identified as dentures. ENT was able to remove dentures after several attempts using fiberoptic endoscope and Cmac. The patient was intubated for airway protection due to poor neurological exam and upper airway trauma. The patient's sister was contacted and she confirmed that the patient had a history of IV heroin use. He was recently incarcerated on drug related charges and released approximately 3 months ago. He was identified as a civilian and transferred to [facility] ICU. No PMH Upon arrival to [facility] ICU, the patient is sedated on propofol. Able to move upper and lower extremities with purpose. Does not respond to commands, does not answer yes/no questions. PERRLA. His VS are T 37.0 BP 130/62 HR 63 RR 12 SPO2 100% on ventilator. NSR on cardiac telemetry. Lungs are clear to auscultation. S1S2, no murmur/rubs/gallops. Unable to visualize inside of oropharynx due to ETT. Lengthy discussion with sister, Katlyn ([employer] RN at [facility]). She reports that the patient has an extensive history of narcotic abuse that started when he was 16 years old. The patient has been addicted to IV heroin for years, recently spent time in nursing home on drug related charges, he was released approximately 3 months ago. The sister states the patient has been living with their mother but she is concerned that the patient has been using heroin since he has been out of nursing home. Of note, the patient did not receive Narcan during his time at [facility] emergency department. Admit to hospitalist service with pulmonary consult for vent management. Hospital Course Hospital Course: 32 y.o. M admitted for acute respiratory failure secondary to illicit drug overdose and upper airway swelling. UTOX (+) positive for opiates, family reported history of heroin use. Obtunded upon arrival to [facility] 04/24/2018, intubated for airway protection. Patient's dentures were dislodged (per EMS) and multiple attempts were made (family, EMS, ED MD) to remove them from the oropharynx. [facility] ENT was successful at removal. 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 CT Soft Tissue neck was negative for any structural or vascular damage from the dislodged dentures. The patient was given IV decadron for upper airway swelling during the first 24 hours. The following morning, there was no evidence of airway swelling (as evidence by normal ETT cuff pressure), the decision was made to extubate. Successful extubation on 04/25/2018. The patient was monitored for 24 more hours for possible upper airway swelling. Following 48 hours in the hospital, the decision was made to discharge the patient home. His vital signs were normal and there was no evidence of upper airway swelling. Additionally, the patient was tested for TB (PPD applied to forearm) due to recent incarceration and the results of his PPD were negative. The patient was counseled on the dangers of drug use, as well as the dangers of going to sleep while still wearing his dentures. The patient stated understanding of his instructions. For any further information regarding the hospital stay, please refer to the EMR. Physical Exam Vital Signs: Temp Pulse Resp BP Pulse Ox 98.7 F 75 16 115/60 98 04/26/18 12:00 04/26/18 12:00 04/26/18 12:00 04/26/18 12:00 04/26/18 12:00 Results Laboratory Results: 04/26/18 04:23 04/26/18 04:23 04/24/18 04/24/18 04/24/18 15:19 15:19 20:45 CK-MB (CK-2) 2.01 Troponin I < 0.012 < 0.012 NT-Pro-B Natriuret Pep 190 H 04/25/18 02:50 CK-MB (CK-2) Troponin I < 0.012 NT-Pro-B Natriuret Pep Impressions: Head CT 04/24/18 00:00 IMPRESSION: NORMAL BRAIN CT WITHOUT CONTRAST. EVIDENCE OF ACUTE STROKE: NO. Soft Tissue Neck CT 04/24/18 00:00 IMPRESSION: 1. NO SIGNIFICANT FINDING IN THE SOFT TISSUES OF THE NECK. 2. ENDOTRACHEAL TUBE DEMONSTRATING APPROPRIATE POSITIONING. PARTIALLY IMAGED ENTERIC TUBE. KUB X-Ray 04/24/18 14:23 IMPRESSION: No enteric tube is demonstrated on the image provided. Apparent Overton bladder catheter demonstrates normal position. Chest X-Ray 04/24/18 14:26 IMPRESSION: Endotracheal tube tip overlies the mid trachea approximately 8 cm above the level of the johnnie. Nasogastric catheter is present with side port below the GE junction. Qualifiers - * PATIENT BEING DISCHARGED WITH ANY OF THE FOLLOWING DIAGNOSIS: No Plan Time Spent: Less than 30 Minutes - discharge home
== END 2018-04-26 12:00 | disposition home or self-care (01) | DRG 917 ==
LOC: ICU 14:16
PROVIDERS: ADMIT Student in an Organized Health Care Education/Training Program; ATTEND Student in an Organized Health Care Education/Training Program
PROC: 5A1935Z Respiratory Ventilation, Less than 24 Consecutive Hours (ICD-10-PCS; principal; 2018-04-24)
DX: T40.601A Poisoning by unspecified narcotics, accidental (unintentional), initial encounter (principal); J96.01 Acute respiratory failure with hypoxia; Y92.019 Unspecified place in single-family (private) house as the place of occurrence of the external cause; F17.210 Nicotine dependence, cigarettes, uncomplicated; Z88.6 Allergy status to analgesic agent; Z91.030 Bee allergy status; Z20.1 Contact with and (suspected) exposure to tuberculosis
CPT/HCPCS: 36415; 70450; 70491; 71045; 74018; 80048; 80053; 80074; 80307; 81001; 82553; 82803; 83735; 83880; 84100; 84443; 84484; 85025; 85027; 85610; 86701; 86702; 87015; 87116; 87206; 93005; 93010; 94002; 94003; J1100; J2060; J2704; J3010; J3490; S0164

== ENCOUNTER 2018-04-29 02:59 | Emergency (ER) | payer SELFPAY ==
[2018-04-29 03:13] VITALS: BP 145/79
[2018-04-29] MEDS ORDERED: PIPERACILLIN/TAZOBACTAM 3.375 GM VIAL IV ONE (03:41)
[2018-04-29] MEDS ORDERED: VANCOMYCIN HCL INJ 1000 MG VIAL IV ONE (03:41)
--- NOTE | 2018-04-29 03:43 | ER Document Report ---
ED Extremity Problem, Upper - General Chief Complaint: Arm Problem Stated Complaint: ARM PAIN Time Seen by Provider: 04/29/18 03:35 Notes: Patient is a 32-year-old male comes emergency department for chief complaint of swelling, redness, and pain to his left forearm. He states he squeezed out some pus earlier today and since then it has had some clear drainage and bleeding. He reports shaking chills earlier today. He states that he was here 2 days ago and had an IV placed and then removed and then the same site got infected. He does admit to IV drug abuse history, last injection was 5 days ago reportedly. Tetanus up-to-date within 5 years reportedly. Denies any daily medications or medical problems. TRAVEL OUTSIDE OF THE [place] IN LAST 30 DAYS: No - Related Data Allergies/Adverse Reactions: hydrocodone [Hydrocodone] Adverse Reaction (Mild, Verified 04/19/14 19:17) bee stings Allergy (Severe, Uncoded 04/19/14 19:17) Anaphylaxis Past Medical History - General Information source: Patient - Social History Smoking Status: Never Smoker Drug Abuse: Heroin Lives with: Alone Family History: Reviewed & Not Pertinent, Other Past Surgical History: Reports: Hx Adenoidectomy, Hx Orthopedic Surgery - titanium replaced eye socket, Hx Tonsillectomy - adenoids - Immunizations Hx Diphtheria, Pertussis, Tetanus Vaccination: Yes Review of Systems - Review of Systems Constitutional: No symptoms reported EENT: No symptoms reported Cardiovascular: No symptoms reported Respiratory: No symptoms reported Gastrointestinal: No symptoms reported Genitourinary: No symptoms reported Male Genitourinary: No symptoms reported Musculoskeletal: See HPI Skin: See HPI Hematologic/Lymphatic: No symptoms reported Neurological/Psychological: No symptoms reported Physical Exam - Vital signs Vitals: Temp Pulse Resp BP Pulse Ox 99.4 F 101 H 18 145/79 H 98 04/29/18 03:12 04/29/18 03:12 04/29/18 03:12 04/29/18 03:12 04/29/18 03:12 - Notes Notes: GENERAL: Alert, interacts well. No acute distress. HEAD: Normocephalic, atraumatic. EYES: Pupils equal, round, and reactive to light. Extraocular movements intact. ENT: Oral mucosa moist, tongue midline. NECK: Full range of motion. Supple. Trachea midline. LUNGS: Clear to auscultation bilaterally, no wheezes, rales, or rhonchi. No respiratory distress. HEART: Regular rate and rhythm. No murmur ABDOMEN: Soft, non-tender. Non-distended. Bowel sounds present in all 4 quadrants. EXTREMITIES: Left forearm with a small area of skin opening/abrasion, no induration or fluctuance, when this is squeezed a small amount of clear fluid and blood come out. Surrounding area around this show erythema and soft tissue swelling extending up the forearm and towards the wrist. Normal range of motion of the elbow, wrist, hand. Normal capillary refill and sensation. BACK: no cervical, thoracic, lumbar midline tenderness. No saddle anesthesia, normal distal neurovascular exam. NEUROLOGICAL: Alert and oriented x3. Normal speech. [cranial nerves II through XII grossly intact]. PSYCH: Normal affect, normal mood. SKIN: Warm, dry, normal turgor. No rashes or lesions noted. Course - Re-evaluation Re-evalutation: Patient with cellulitis of the left forearm, probable IV site injection, he states he was here 2 days ago and had an IV placed but there is no visit listed for him here 2 days ago. There is no induration or fluctuance, no evidence of abscess on exam. Full range of motion at the elbow, wrist. Soft tissue swelling does extend up the forearm towards the wrist. Area was marked. CBC and chemistry are actually unremarkable. Patient initially mildly tachycardic, not tachycardic on reevaluation. Because of IV drug abuse and the amount of cellulitis he has on his forearm I discussed with Dr. Rose, he evaluated the patient at bedside, he recommends admission to medicine with surgical consult. Patient was started on vancomycin and Zosyn. No additional imaging recommended after negative x-ray. Discussed with patient. Recommended that he be admitted, he declines. He states he wants to try to take oral antibiotics with returning if he gets any worse. I explained that this already has a fairly large area of cellulitis, he is already having chills, and he does have a history of IV drug abuse. Recommendation is to admit the patient. He again declines, states that he understands the risks, states that he will return if he worsens in any way. Patient does not have a fever, he is not a diabetic, no leukocytosis, no evidence of abscess at this time. Discharged with return precautions. - Vital Signs Vital signs: Temp Pulse Resp BP Pulse Ox 99.4 F 101 H 18 145/79 H 98 04/29/18 03:12 04/29/18 03:12 04/29/18 03:12 04/29/18 03:12 04/29/18 03:12 - Laboratory Result Diagrams: 04/29/18 03:40 04/29/18 03:40 Laboratory results interpreted by me: 04/29/18 04/29/18 03:40 03:40 Hgb 12.6 L Hct 37.1 L Plt Count 128 L Glucose 131 H Discharge - Discharge Clinical Impression: Cellulitis of left forearm Condition: Stable Disposition: HOME, SELF-CARE Additional Instructions: You have declined admission at this time. You have cellulitis infection of the left forearm. Keep clean, clean with soap and water, keep clean dressing over it. Take antibiotics as prescribed. Return at any time, especially if the redness spreads outside of marked area, he developed a fever of 100.4 greater, shaking chills, or any other concerning or worsening symptoms. Prescriptions: Cephalexin Monohydrate [Keflex 500 mg Capsule] 500 mg PO QID #28 capsule Sulfamethoxazole/Trimethoprim [Bactrim Ds Tablet] 1 each PO BID #14 tablet Forms: Return to Work
--- NOTE | 2018-04-29 03:48 | RADIOLOGY REPORT (SQ) ---
Left forearm two view on 04/29/2018 at 3:49 AM CLINICAL INDICATION: Recent IV, infection at IV site, redness and swelling, evaluate for foreign body COMPARISON: None FINDINGS: There is no radiopaque foreign body. There are no fractures. Visualized joints are well aligned. Slight ulnar minus variant is noted. No joint effusion is noted in the elbow. No definite plain radiographic evidence of osteomyelitis is noted. IMPRESSION: No acute abnormality.
[2018-04-29 03:52] LABS: ABSOLUTE BASOPHILS # (AUTO) 0.1 10^3/uL (0.0-0.2); ABSOLUTE EOSINOPHILS # (AUTO) 0.1 10^3/uL (0.0-0.6); ABSOLUTE LYMPHOCYTES (AUTO) 1.9 10^3/uL (0.5-4.7); ABSOLUTE MONOCYTES (AUTO) 1.2 10^3/uL (0.1-1.4); ABSOLUTE NEUT (AUTO) 6.3 10^3/uL (1.7-8.2); EOSINOPHILS % (AUTO) 1.1 % (0-6); HEMATOCRIT 37.1 % (37.9-51.0); HEMOGLOBIN 12.6 g/dL (13.5-17.0); MEAN CORPUSCULAR HEMOGLOBIN 28.4 pg (27.0-33.4); MEAN CORPUSCULAR HGB CONC 33.9 g/dL (32.0-36.0); MEAN CORPUSCULAR VOLUME 84 fl (80-97); MONOCYTES % (AUTO) 12.3 % (3-13); PLATELET COUNT 128 10^3/uL (150-450); RED BLOOD COUNT 4.43 10^6/uL (4.35-5.55); RED CELL DISTRIBUTION WIDTH 13.7 % (11.5-14.0); SEGMENTED NEUTROPHILS % (AUTO) 65.6 % (42-78); TOTAL CELLS COUNTED % (AUTO) 100 %; WHITE BLOOD COUNT 9.5 10^3/uL (4.0-10.5)
[2018-04-29] MEDS ORDERED: KETOROLAC TROMETHAMINE INJ/PF 30 MG/1 ML SDV ONE (04:27)
[2018-04-29 05:39] LABS: ANION GAP 11 (5-19); BLOOD UREA NITROGEN 12 mg/dL (7-20); CARBON DIOXIDE 29 mmol/L (22-30); CHLORIDE 99 mmol/L (98-107); GLUCOSE 131 mg/dL (75-110); POTASSIUM 3.9 mmol/L (3.6-5.0); SODIUM 138.8 mmol/L (137-145)
--- NOTE | 2018-04-29 08:16 | PDOC CONSULTATION ---
Consultation Consult Date: 04/29/18 Consult reason:: swelling left lower arm History of Present Illness Patient complains of: left lower arm pains History of Present Illness: MANDA NOLASCO III is a 32 year old male who was admitted here for possible overdose,intubated with removal of tooth prosthesis on his throat at ER 5 days ago. Was admitted to ICU and extubated the next day and discharged. He claims his left arm swell from an IV when he was in the hospital. He further claims that there was a whitish scab that he removed with a dirty knife about 2 days ago. Since then this area of the left arm has gotten red and painful. He claims last time he shot heroin in his right cubital vein was a week ago. As soon as he got to ED he squeezed some purulent drainage from the left lower arm " IV site". Past Surgical History Past Surgical History: Reports: Orthopedic Surgery - titanium replaced eye socket, Tonsillectomy - adenoids Social History Lives with: Alone Smoking Status: Never Smoker Hx Recreational Drug Use: Yes Drugs: Heroin Hx Prescription Drug Abuse: Yes - PERCOCET Family History Family History: Reviewed & Not Pertinent, Other Parental Family History Reviewed: No Children Family History Reviewed: No Sibling(s) Family History Reviewed.: No Medication/Allergy Home Medications: Cephalexin Monohydrate [Keflex 500 mg Capsule] 500 mg PO QID #28 capsule Sulfamethoxazole/Trimethoprim [Bactrim Ds Tablet] 1 each PO BID #14 tablet 04/29 Allergies/Adverse Reactions: hydrocodone [Hydrocodone] Adverse Reaction (Mild, Verified 04/19/14 19:17) bee stings Allergy (Severe, Uncoded 04/19/14 19:17) Anaphylaxis Review of Systems Constitutional: PRESENT: chills, fever(s) Eyes: PRESENT: other - no visual/hearing changes Cardiovascular: PRESENT: other - no cough/chest pains Gastrointestinal: PRESENT: other - no pains abd Genitourinary: PRESENT: other - no dysuria Physical Exam Vital Signs: Temp Pulse Resp BP Pulse Ox 99.4 F 101 H 18 145/79 H 98 04/29/18 03:12 04/29/18 03:12 04/29/18 03:12 04/29/18 03:12 04/29/18 03:12 Intake & Output 04/28/18 04/29/18 04/30/18 06:59 06:59 06:59 Weight 86.1 kg General appearance: PRESENT: no acute distress Head exam: PRESENT: atraumatic Eye exam: PRESENT: conjunctiva pink Mouth exam: PRESENT: moist Neck exam: PRESENT: full ROM Respiratory exam: PRESENT: other - notachypnea Cardiovascular exam: PRESENT: RRR Pulses: PRESENT: normal radial pulses Vascular exam: PRESENT: normal capillary refill GI/Abdominal exam: PRESENT: soft Rectal exam: PRESENT: deferred Extremities exam: PRESENT: other - left lower arm swollen and erythematous Left basilic vein thrombosed but no pus noted on squeezing around punctate site. Musculoskeletal exam: PRESENT: ambulatory Neurological exam: PRESENT: alert, oriented to person, oriented to place, oriented to time, oriented to situation Psychiatric exam: PRESENT: anxious Skin exam: PRESENT: erythema, warm, other - left lower arm Results Laboratory Results: 04/29/18 03:40 04/29/18 03:40 04/29/18 04/29/18 03:40 03:40 WBC 9.5 RBC 4.43 Hgb 12.6 L Hct 37.1 L MCV 84 MCH 28.4 MCHC 33.9 RDW 13.7 Plt Count 128 L Seg Neutrophils % 65.6 Lymphocytes % 20.0 Monocytes % 12.3 Eosinophils % 1.1 Basophils % 1.0 Absolute Neutrophils 6.3 Absolute Lymphocytes 1.9 Absolute Monocytes 1.2 Absolute Eosinophils 0.1 Absolute Basophils 0.1 Sodium 138.8 Potassium 3.9 Chloride 99 Carbon Dioxide 29 Anion Gap 11 BUN 12 Creatinine 0.73 Est GFR ( Amer) > 60 Est GFR (Non-Af Amer) > 60 Glucose 131 H Calcium 9.0 Impressions: Forearm X-Ray 04/29/18 03:12 IMPRESSION: No acute abnormality. Assessment & Plan - Time Time Spent: 30 to 50 Minutes - Plan Summary Plan Summary: Has cellulitis left forearm. No abscess to drain at this time Suggest admit to Hospitalist service for IV antibiotics. Will follow as needed . May eventually need I&D
== END 2018-04-29 06:15 | disposition home or self-care (01) ==
LOC: ER 02:59
DX: L03.114 Cellulitis of left upper limb (principal); R68.83 Chills (without fever); F11.10 Opioid abuse, uncomplicated; Z87.892 Personal history of anaphylaxis; Z91.030 Bee allergy status
CPT/HCPCS: 99284; 96365; 96366; 96368; 36415; 87040; 85025; 80048; 73090; J3370; J2543

== ENCOUNTER 2018-12-02 16:10 | Emergency (ER) | payer SELFPAY ==
[2018-12-02 16:17] VITALS: BP 138/73
[2018-12-02] MEDS ORDERED: ONDANSETRON ODT 4 MG TAB (6 TAB/ER DISP) PO PRN (16:46)
--- NOTE | 2018-12-02 16:49 | ER Document Report ---
ED General - General Chief Complaint: Nausea/Vomiting/Diarrhea Stated Complaint: DIARRHEA Time Seen by Provider: 12/02/18 16:36 Notes: Patient is a 33-year-old male that presents to the emergency department for chief complaint of nausea, vomiting and diarrhea. Patient reports that his symptoms started last night, progressive this morning, he has been taking Imodium, which did help somewhat with the diarrhea, but still had nausea and vomiting, he decided to come in today because he had to miss work. He states he has had sick contacts with similar symptoms including his sister and mother. He had a mild headache, but it is resolved at this time. Denies any significant abdominal pain, currently rates it as a 1 out of 10 describes as an aching sensation mostly associated with the diarrhea. Denies any dysuria, hematuria, fevers, chills, night sweats, chest pain, shortness of breath or difficulty breathing. Past Medical History: Denies chronic medical conditions Past Surgical History: Tonsillectomy Social History: Admits to smoking cigarettes, denies alcohol or current illicit drug use Family History: Reviewed and noncontributory for presenting illness Allergies: Reviewed, see documented allergy list. REVIEW OF SYSTEMS: Other than noted above, the 12 point review of systems was reviewed with the patient and were negative, all pertinent findings are included in the HPI. PHYSICAL EXAMINATION: Vital signs reviewed, nursing noted reviewed. GENERAL: Well-appearing, well-nourished and in no acute distress. HEAD: Atraumatic, normocephalic. EYES: Eyes appear normal, extraocular movements intact, sclera anicteric, conj unctiva are normal. ENT: nares patent, oropharynx clear without exudates. Moist mucous membranes. NECK: Normal range of motion, supple without lymphadenopathy LUNGS: Breath sounds clear to auscultation bilaterally and equal. No wheezes rales or rhonchi. HEART: Regular rate and rhythm without murmurs ABDOMEN: Soft, nontender, normoactive bowel sounds. No rebound, guarding, or rigidity. No masses appreciated. EXTREMITIES: Nontender, good range of motion, no pitting or edema. NEUROLOGICAL: No focal neurological deficits. Moves all extremities spontaneously Motor and sensory grossly intact on exam. PSYCH: Normal mood, normal affect. SKIN: Warm, Dry, normal turgor, no rashes or lesions noted on exposed skin TRAVEL OUTSIDE OF THE [place] IN LAST 30 DAYS: No - Related Data Allergies/Adverse Reactions: hydrocodone [Hydrocodone] Adverse Reaction (Mild, Verified 04/19/14 19:17) bee stings Allergy (Severe, Uncoded 04/19/14 19:17) Anaphylaxis Past Medical History - Social History Smoking Status: Current Every Day Smoker Chew tobacco use (# tins/day): No Frequency of alcohol use: None Drug Abuse: None Family History: Reviewed & Not Pertinent, Other Patient has suicidal ideation: No Patient has homicidal ideation: No Renal/ Medical History: Denies: Hx Peritoneal Dialysis Past Surgical History: Reports: Hx Adenoidectomy, Hx Orthopedic Surgery - titanium replaced eye socket, Hx Tonsillectomy - adenoids - Immunizations Hx Diphtheria, Pertussis, Tetanus Vaccination: Yes Physical Exam - Vital signs Vitals: Temp Pulse Resp BP Pulse Ox 98.7 F 101 H 16 138/73 H 97 12/02/18 16:16 12/02/18 16:16 12/02/18 16:16 12/02/18 16:16 12/02/18 16:16 Course - Re-evaluation Re-evalutation: Patient appears well-hydrated on exam, will dispensed Zofran 4 mg ODT number 6 tablets, advised to take these every 6-8 hours to help with his nausea and vomiting. Worsen or do not improve, he can return to the emergency department to be reevaluated. Do not feel he needs any further workup or evaluation at this time, he otherwise looks well. - Vital Signs Vital signs: Temp Pulse Resp BP Pulse Ox 98.7 F 101 H 16 138/73 H 97 12/02/18 16:16 12/02/18 16:16 12/02/18 16:16 12/02/18 16:16 12/02/18 16:16 Discharge - Discharge Clinical Impression: Nausea & vomiting Qualifiers: Vomiting type: unspecified Vomiting Intractability: non-intractable Qualified Code(s): R11.2 - Nausea with vomiting, unspecified Diarrhea Qualifiers: Diarrhea type: unspecified type Qualified Code(s): R19.7 - Diarrhea, unspecified Condition: Stable Disposition: HOME, SELF-CARE Instructions: Vomiting ([facility]) Additional Instructions: Please return to the emergency department if you have any worsening, or concern of your symptoms. Please return to the emergency department if you develop chest pain, difficulty breathing, severe abdominal pain, or ongoing vomiting. Please follow-up with your primary care physician in 2-3 days and any other recommended physicians. If prescribed, take all medications as directed. If you have any questions or concerns do not hesitate to return the emergency department for evaluation. Forms: Return to Work Referrals: ZANA RILEY MD [ACTIVE STAFF] - Follow up as needed [facility] [Provider Group] - Follow up as needed
== END 2018-12-02 16:50 | disposition home or self-care (01) ==
LOC: ER 16:10
DX: R11.2 Nausea with vomiting, unspecified (principal); R19.7 Diarrhea, unspecified; R51 Headache; F17.210 Nicotine dependence, cigarettes, uncomplicated
CPT/HCPCS: 99283